=== PATIENT | male | born 1965 | race Two or more races ===

== ENCOUNTER → 2016-07-29 | Outpatient (CLI) | payer BC, OTHER ==
[2016-07-29 14:17] LABS: Albumin 4.3 g/dL (3.4-5.0); BUN/Creatinine Ratio 15.7; Bilirubin, Direct 0.2 mg/dL (0-0.2); Bilirubin, Total 0.8 mg/dL (0.2-1.0); Potassium 4.3 mmol/L (3.5-5.1); Total Protein 7.9 g/dL (6.4-8.2)
[2016-07-29 15:42] LABS: Cholesterol 226 mg/dL (<200); HDL Cholesterol 67 mg/dL (40-59); LDL Cholesterol 146 mg/dL (<100); Triglycerides 142 mg/dL (<150)
== END | disposition home or self-care (01) ==
LOC: LAB 08:16
PROVIDERS: ATTEND Internal Medicine Cardiovascular Disease
DX: I10 Essential (primary) hypertension (principal); E78.00 Pure hypercholesterolemia, unspecified; K74.1 Hepatic sclerosis; R97.20 Elevated prostate specific antigen [PSA]; R53.81 Other malaise; E03.9 Hypothyroidism, unspecified; E55.9 Vitamin D deficiency, unspecified
CPT/HCPCS: 36415; 80048; 80061; 80076; 82306; 84153; 84403; 84443

== ENCOUNTER → 2024-10-19 | Day surgery (SDC) | payer BC ==
[2024-10-17 13:50] LABS: Basophils # (auto) 0 10 ^3/uL (0-0.2); Basophils % (auto) 0.9 % (0.0-2.0); Eosinophils # (auto) 0.1 10 ^3/uL (0-0.8); Eosinophils % (auto) 1.1 % (0.0-7.0); Hemoglobin 14.2 g/dL (13.5-17.5); Lymphocytes # (auto) 1.3 10 ^3/uL (0.4-5.4); Lymphocytes % (auto) 28.4 % (10.0-50.0); Mean Corpuscular Hgb Conc. 34.6 g/dL (32.0-36.0); Mean Corpuscular Volume 89.8 fL (80.0-100.0); Monocytes # (auto) 0.5 10 ^3/uL (0-1.3); Monocytes % (auto) 11.9 % (0.0-12.0); Neutrophils # (auto) 2.7 10 ^3/uL (1.6-8.6); Neutrophils % (auto) 57.7 % (37.0-80.0); Nucleated Red Blood Cells % 0.2 %; Platelet Count (auto) 159 10^3/uL (140-450); Red Blood Cells 4.57 10^6/uL (4.5-5.90); Red Cell Distribution Width 13.3 % (11.8-14.3); White Blood Cell 4.6 10^3/uL (4.4-10.8)
[2024-10-17 14:02] LABS: INR 0.97 (0.9-1.15); Partial Thromboplastin Time 25.9 SEC (24.5-34.5); Prothrombin Time 10.3 sec (9.3-11.8)
[2024-10-17 14:12] LABS: Alanine Aminotransferase 30 U/L (7-40); Albumin 4.5 g/dL (3.2-4.8); Alkaline Phosphatase 57 U/L (46-116); Anion Gap 7 (5-15); Aspartate Aminotransferase 14 U/L (13-40); BUN/Creatinine Ratio 12.4 (10.0-20.0); Bilirubin, Total 0.7 mg/dL (0.2-1.0); Blood Urea Nitrogen 12 mg/dL (9-23); Calcium 9.3 mg/dL (8.7-10.4); Carbon Dioxide 27 mmol/L (20-31); Chloride 105 mmol/L (98-107); Glucose 117 mg/dL (74-106); Potassium 4.2 mmol/L (3.5-5.1); Sodium 139 mmol/L (136-145); Total Protein 7.2 g/dL (5.7-8.2)
[~2024-10-19] VITALS: Ht 185.4 cm; Wt 97.5 kg
[~2024-10-19] MED LIST: LISI20TA56 PO; OMEP20TA PO; SODIUM CHLORIDE LOCK 10 ML ONE
[2024-10-19 15:05] VITALS: PULSE 80; RESP 12; O2SAT 100
[2024-10-19] MEDS: MIDAZOLAM HCL 5 MG/ML-1ML VIAL ONE (15:09)
[2024-10-19] MEDS: fentaNYL CITRATE 100 MCG/2 ML VL ONE (15:09)
[2024-10-19] MEDS: diphenhdrAMINE HCL 50 MG/1 ML VL ONE (15:09)
[2024-10-19 15:30] VITALS: PULSE 70; O2SAT 100
--- NOTE | 2024-10-19 15:31 | DVHOP2 ---
Operative Report DATE OF OPERATION: 10/19/24 PROCEDURE: Colonoscopy with cold biopsy polypectomy. PREOPERATIVE INDICATION: The patient is a 59 -year-old male undergoing colonoscopy for surveillance with personal history of colon polyps POSTOPERATIVE DIAGNOSES: 1. There was a 2 mm benign-appearing descending colon polyp that was seen and removed completely via cold biopsy forceps 2. There was a 1 mm benign-appearing sigmoid polyp that was seen and removed by cold biopsy forceps 3. Trace internal hemorrhoids, mild muscular hypertrophy of the sigmoid otherwise normal examination up to the cecum PROCEDURE PERFORMED BY: Sean Pinzon M.D. SCOPE: Olympus videocolonoscope. ASA CLASS: 2. PREOPERATIVE MEDICATIONS: Versed 5 mg, Fentanyl 100 mcg, Benadryl 50 mg PROCEDURE IN DETAIL: After obtaining an informed consent, the patient was placed on left lateral decubitus position. He was then sedated with the above medications. A rectal examination was performed that was normal. The colonoscope was then passed through the anus into the rectosigmoid and through the descending, transverse, and ascending colon up to the cecum with visualization of the appendiceal orifice, base of the cecum and the ileocecal valve. The colonoscope was then withdrawn. No masses or colitis was noted. There was mild sigmoid muscular hypertrophy but no clear-cut diverticular openings were seen In the descending colon there was a 2 mm benign-appearing polyp at about 50 cm above the anal verge This was removed completely via cold biopsy forceps. In the sigmoid colon about 20 cm above the anal verge there was a 1-2 mm benign-appearing polyp This was removed by cold biopsy forceps. On retroflexion and straight on view he had trace internal hemorrhoids. The patient tolerated the procedure well without difficulty. WITHDRAWAL TIME: 9 minutes QUALITY OF THE PREP: [place] Bowel Prep score: 9. COMPLICATIONS : None SPECIMENS: Descending colon polyp Sigmoid polyp DISPOSITION: Stable D/C to home PLAN: 1. Repeat colonoscopy base on biopsy result likely in 3-5 years 2. Resume GI soft diet advance as tolerated 3. Increase fluid and fiber intake 4. Outpatient follow up with me in 2-4 weeks to review results and discuss further management SEAN PINZON MD October 19, 2024 15:31
[2024-10-19 16:00] VITALS: BP 120/62; PULSE 74; RESP 15; O2SAT 97
== END | disposition home or self-care (01) ==
LOC: GI 11:27
PROVIDERS: ATTEND Internal Medicine Gastroenterology
DX: R19.5 Other fecal abnormalities (principal); D12.4 Benign neoplasm of descending colon; K64.8 Other hemorrhoids; I10 Essential (primary) hypertension; Z91.041 Radiographic dye allergy status; Z90.49 Acquired absence of other specified parts of digestive tract; Z98.52 Vasectomy status; Z98.890 Other specified postprocedural states; Z79.899 Other long term (current) drug therapy
CPT/HCPCS: 36415; 45380; 80053; 85025; 85610; 85730; 88305; J1200; J2250; J3010; J7030; 99152